=== PATIENT | male | born 1980 | race Hispanic/Latino ===

== ENCOUNTER → 2020-04-07 | Day surgery (SDC) | payer OTHER ==
[~2020-04-07] MED LIST: ACETAMINOPHEN 1000 MG/100 ML IV ONE; BUPIVACAINE HCL 0.5% INJ 30 ML VIAL INJ ONE; CEFAZOLIN SOD 1 GM/NS 50ML 50 ML IV ONE; DEXAMETHASONE SOD PHOS INJ 4 MG/ML VIAL ONE; EPINEPHRINE 1 MG/ML 30ML VIAL ONE; EPINEPHRINE HCL 1:1000 1ML 1 MG/ML AMP ONE; ETOMIDATE 2 MG/ML 10 ML INJ IV ONE; FENTANYL CITRATE/PF 100MCG/2 ML INJ ONE; GLYCOPYRROLATE INJ 0.2 MG/ML VIAL ONE; HYDRALAZINE HCL 20 MG/ML VIAL ONE; HYDROMORPHONE 1MG/1ML INJ ONE; LIDOCAINE HCL 2% LOCAL INJ 5 ML SDV VIAL INJ ONE; MIDAZOLAM HCL 2 MG/2 ML VIAL ONE; NEOSTIGMINE 1 MG/ML 10ML VIAL ONE; ONDANSETRON HCL INJ 2MG/ML 2ML 2 MG/ML VIAL ONE; ROCURONIUM BROMIDE 10 MG/ML 5ML VIAL IV ONE; SEVOFLURANE INHAL SOLN 250 ML PEN BTL ONE
[2020-04-07] MEDS: HYDROCODONE/APAP 7.5MG-325MG 1 EA TAB ONE ×3 (12:20→16:35)
[2020-04-07 12:35] VITALS: BP 140/80
--- NOTE | 2020-04-09 17:05 | Operative Report ---
DATE OF PROCEDURE: 04/07/2020 SURGEON: Douglas Perez MD TARGET WORKER: Donald Alvarado, certified PA. PREOPERATIVE DIAGNOSIS: Right shoulder rotator cuff tear. POSTOPERATIVE DIAGNOSIS: Right shoulder rotator cuff tear. PROCEDURES: Shoulder arthroscopy, subacromial decompression, and rotator cuff repair. INDICATIONS: The patient is a 40-year-old gentleman, who has a traumatic full-thickness rotator cuff tear in his right shoulder. He was originally scheduled for surgery, but that had to be guide postponed due to the COVID-19 pandemic. We are now on for the surgery. The risks and benefits and lengthy recovery have been discussed. He states he understands and wishes to proceed. PROCEDURE IN DETAIL: The patient was brought to the operating room and placed under general anesthetic. He received a regional block and prophylactic antibiotics in the holding area. He was positioned in the beach chair position on the shoulder table. His right upper extremity was prepped and draped in a sterile manner. A preoperative time-out was performed. A posterior arthroscopy portal was established. The shoulder was insufflated with sterile saline and systematically inspected. The glenohumeral surfaces were well preserved. There was some fraying of the labrum. The biceps tendon was intact and stable at its insertion on the supraglenoid tubercle. There was a full-thickness tear of the anterior 1.5 cm of the supraspinatus. A lateral working portal was established. A mechanical shaver was introduced into the joint to gently debride back the articular surface of the rotator cuff to more healthy tissue. The scope was then placed into the subacromial space. A subacromial bursectomy and gentle bone decompression were performed. An [employer] SpeedBridge Double-Row rotator cuff repair system was used. Given the size of the tear, a single bioabsorbable suture anchor preloaded with a FiberTape stitches was placed at the articular margin, this was passed through the rotator cuff with an [employer] Scorpion suture passer. An anterior shuttle portal was utilized. Secondary bioabsorbable suture anchors were used to secure the tendon down to bleeding cancellous bone with a tension applied to the FiberTape stitches as they were seated into the proximal lateral humeral cortex. The tear was probed and noted to be under appropriate tension with excellent bone opposition. The arthroscopic instruments were removed. The portal incisions were closed with nylon stitches and then covered with a sterile bandage. The patient was placed into an UltraSling. He was extubated and transported to the recovery room in stable condition. Douglas Perez MD DR/SID /[id number]
== END | disposition home or self-care (01) ==
LOC: OR 08:45
PROVIDERS: ATTEND Specialist
DX: S46.021A Laceration of muscle(s) and tendon(s) of the rotator cuff of right shoulder, initial encounter (principal); F17.210 Nicotine dependence, cigarettes, uncomplicated; W01.198A Fall on same level from slipping, tripping and stumbling with subsequent striking against other object, initial encounter; Y92.89 Other specified places as the place of occurrence of the external cause; Y99.0 Civilian activity done for income or pay; Z01.810 Encounter for preprocedural cardiovascular examination; Z01.812 Encounter for preprocedural laboratory examination; Z11.59 Encounter for screening for other viral diseases
CPT/HCPCS: 29827; 87635; 93005; C1713; J0131; J0171; J0360; J0690; J1100; J1170; J2001; J2250; J2405; J2710; J3010